=== PATIENT | female | born 1980 | race Caucasian/White ===

== ENCOUNTER → 2020-06-19 | Outpatient (CLI) | payer OTHER ==
--- NOTE | 2020-06-19 10:30 | KCIC ---
EXAM: Bilateral diagnostic mammogram; right breast sonogram. HISTORY: 40-year-old female presents with a palpable right breast lump. TECHNIQUE: Full-field digital craniocaudal and mediolateral oblique views of both breasts are obtained for evaluation. Computer aided detection with [employer]dor[employer] software version 9.3 was applied. Sonographic imaging of the right breast including all 4 quadrants and the retroareolar was performed. COMPARISON: Mammogram and sonogram dated 05/31/2013. BREAST PARENCHYMAL DENSITY: Level B - Scattered fibroglandular densities. FINDINGS: There is a spiculated mass within the posterior 1:00 position of the right breast at the site of palpable concern. There is also a circumscribed nodule within the posterior 6:00 position of the right breast. There is no new suspicious finding within the left breast. Sonographic imaging of the right breast demonstrates a suspicious mass with internal blood flow, irregular margins and posterior shadowing at the 1:00 position 5.5 cm from the nipple measuring approximately 2.1 cm in maximum dimension. This corresponds with the site of palpable concern and the spiculated mass demonstrated mammographically. There is also a more circumscribed hypoechoic lesion at the 5:30 position 6 cm from the nipple measuring 7 mm in maximum dimension. There is a right axillary lymph node with slightly thickened cortex measuring 1.6 cm in long axis. IMPRESSION: 1. Suspicious mass within the posterior 1:00 position of the right breast at the site of palpable concern measuring approximately 2.1 cm in maximum dimension. Sonographic guided biopsy is recommended for definitive diagnosis. 2. 7 mm nodule within the 5:30 position of the right breast. Given the aforementioned findings at the 1:00 position, sonographic guided biopsy of this lesion is also recommended. 3. Slight cortical thickening involving a right axillary lymph node. This is nonspecific and may be physiologic. However, given the aforementioned findings at the 1:00 position, sonographic guided biopsy of this lymph node can be considered at the time of biopsy at the 1:00 position. 4. BI-RADS Category 5: Highly suggestive of malignancy. Sonographic biopsy is recommended, as described above. These findings and recommendations were discussed with the patient and were communicated to the nursing line at the referring physician office at 1020 hours on 06/19/2020. If your mammogram demonstrates that you have dense breast tissue, which could hide abnormalities, and if you have other risk factors for breast cancer that have been identified, you might benefit from supplemental screening tests that may be suggested by your ordering physician. Dense breast tissue, in and of itself, is a relatively common condition. This information is not provided to cause undue concern, but rather to raise your awareness and to promote discussion with your physician regarding the presence of other risk factors, in addition to dense breast tissue. A report of your mammography results will be sent to you and your physician. You should contact your physician if you have any questions or concerns regarding this report. Mammography is a sensitive method for finding small breast cancers, but it does not detect them all and is not a substitute for careful clinical examination. A negative mammogram does not negate a clinically suspicious finding and should not result in delay in biopsying a clinically suspicious abnormality. PQRS compliance statement - Patient information was entered into a reminder system with a target due date for the next mammogram. "Our facility is accredited by the [employer] Mammography Program." Electronically signed by: Vangie Trotter MD (06/19/2020 10:27 AM) [id number]
== END | disposition home or self-care (01) ==
LOC: KCIC MAMMO 09:05
PROVIDERS: ATTEND Obstetrics & Gynecology
DX: R92.2 Inconclusive mammogram (principal); N63.14 Unspecified lump in the right breast, lower inner quadrant; N63.11 Unspecified lump in the right breast, upper outer quadrant
CPT/HCPCS: 76641; 77066